=== PATIENT | male | born 1980 | race Caucasian/White ===

== ENCOUNTER 2023-05-27 08:06 | Day surgery (SDC) | payer SELFPAY ==
[~2023-05-27 08:06] MED LIST: Midazolam 1 MG/ML 2 ML SDV ONE; Propofol 200 MG/20 ML SDV ONE; fentaNYL 50 MCG/ML SDV ONE
[2023-05-27] MEDS ORDERED: Lactated Ringers 1,000 ML IV SCH (08:30)
[2023-05-27 10:52] VITALS: BP 116/83; PULSE 64
== END 2023-05-27 11:04 | disposition home or self-care (01) ==
LOC: JP.SDS 08:06
PROVIDERS: ATTEND Student in an Organized Health Care Education/Training Program
DX: K29.50 Unspecified chronic gastritis without bleeding (principal); K20.90 Esophagitis, unspecified without bleeding; K31.89 Other diseases of stomach and duodenum
CPT/HCPCS: 43239; 88305; J2250; J2704; J3010; J7120